=== PATIENT | male | born 1995 | race Caucasian/White ===

== ENCOUNTER 2021-02-26 03:15 | Emergency (ER) | payer SELFPAY ==
[~2021-02-26] VITALS: Ht 162.6 cm; Wt 108.9 kg
--- NOTE | 2021-02-26 03:21 | NUR ---
PT IN [facility]. ARTHUR ROSALES AT CHAIR SIDE.
[2021-02-26 03:22] VITALS: BP 125/72
--- NOTE | 2021-02-26 03:29 | NUR ---
[facility].
[2021-02-26] MEDS ORDERED: BACITRACIN OINT 500 UNITS/GM PKT TP ONE (03:45)
--- NOTE | 2021-02-26 04:06 | NUR ---
Patient presented to facility under the influence of Alcohol. Patient is currently ambulatory with steady gait, able to walk unassisted. Positive gag reflex. Alert and oriented. Is not driving self for discharge out of facility. Discharge instructions and education provided by Dr. Simon.
== END 2021-02-26 04:06 | disposition home or self-care (01) ==
LOC: MED 03:15
DX: S01.01XA Laceration without foreign body of scalp, initial encounter (principal); Y04.8XXA Assault by other bodily force, initial encounter; Y93.89 Activity, other specified; Y92.89 Other specified places as the place of occurrence of the external cause; Y99.8 Other external cause status
CPT/HCPCS: 99283